=== PATIENT | male | born 2000 | race Two or more races ===

== ENCOUNTER 2025-02-21 14:30 | Emergency (ER) | payer OTHER ==
[~2025-02-21] VITALS: Ht 185.4 cm; Wt 124.4 kg
[2025-02-21 16:18] VITALS: BP 112/72; PULSE 69; RESP 20; TEMP 98.6; O2SAT 98
[2025-02-21] MEDS ORDERED: CYCL-837 PO (16:38)
[2025-02-21] MEDS ORDERED: IBUP-1454 PO (16:38)
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
== END 2025-02-21 17:00 | disposition home or self-care (01) ==
LOC: ER 14:30
DX: M54.6 Pain in thoracic spine (principal); Z88.8 Allergy status to other drugs, medicaments and biological substances; V69.9XXA Occupant (driver) (passenger) of heavy transport vehicle injured in unspecified traffic accident, initial encounter; Y93.89 Activity, other specified; Y92.89 Other specified places as the place of occurrence of the external cause; Y99.8 Other external cause status